=== PATIENT | female | born 1945 ===

== ENCOUNTER → 2019-03-21 07:13 | Outpatient (CLI) | payer OTHER ==
[~2019-03-21 07:13] MED LIST: LOSARTAN POTASS50 MG PO; METFORMIN HCL1000 M2 PO; SIMVASTATIN10 MG PO
== END | disposition home or self-care (01) ==
LOC: RAD 07:13 → LAB 07:13
DX: D68.8 Other specified coagulation defects (principal); D21.6 Benign neoplasm of connective and other soft tissue of trunk, unspecified; E11.9 Type 2 diabetes mellitus without complications; Z01.812 Encounter for preprocedural laboratory examination; I10 Essential (primary) hypertension

== ENCOUNTER 2019-03-29 05:53 | Day surgery (SDC) | payer OTHER | END 2019-03-29 13:40 | disposition home or self-care (01) | LOC: CIR.AMB 05:53 | DX: L72.0 Epidermal cyst (principal) ==